=== PATIENT | female | born 1975 | race Hispanic/Latino ===

== ENCOUNTER 2019-04-18 03:47 | Emergency (ER) | payer MEDICARE ==
[2019-04-18 04:04] VITALS: BP 124/76
[2019-04-18 04:45] LABS: Basophils % (Auto) 0.7 % (0.0-1.8); Eosinophils # (Auto) 0.2 K/mm3 (0.0-0.4); Eosinophils % (Auto) 4.5 % (0.0-4.3); Hematocrit 35.4 % (30.3-42.9); Hemoglobin 11.7 gm/dl (10.1-14.3); Lymphocytes # (Auto) 1.6 K/mm3 (1.2-5.4); Lymphocytes % (Auto) 32.6 % (13.4-35.0); Mean Corpuscular HGB Conc 33 % (30-34); Mean Corpuscular Volume 93 fl (79-97); Monocytes # (Auto) 0.5 K/mm3 (0.0-0.8); Monocytes % (Auto) 9.2 % (0.0-7.3); Platelet Count 323 K/mm3 (140-440); Red Cell Distribution Width 15.5 % (13.2-15.2)
[2019-04-18 05:09] LABS: Alanine Aminotransferase 12 units/L (7-56); Albumin 3.7 g/dL (3.9-5); BUN/Creatinine Ratio 24; Blood Urea Nitrogen 17 mg/dL (7-17); Calcium 8.9 mg/dL (8.4-10.2); Hemolysis Index 27
[2019-04-18] MEDS ORDERED: CLEOCIN 600 MG/50 mL 600 MG/50 ML BAG IV ONE (07:44)
[2019-04-18] MEDS ORDERED: TORADOL IV ONE (07:44)
--- NOTE | 2019-04-18 08:06 | Emergency Department Report ---
ED ENT HPI - General Chief complaint: Dental/Oral Stated complaint: FACIAL SWELLING Time Seen by Provider: 04/18/19 07:38 Source: patient Mode of arrival: Ambulatory Limitations: No Limitations - History of Present Illness Initial comments: 43-year-old female presents to the emergency room for facial swelling for 3 days with a dental carry as the origin of illness. Patient reports that she is aware she has some bad teeth in her mouth. She denies any fever problems swallowing the problems closing her eyes. She does have a past medical history of diabetes hypertension hypercholesterolemia. She is a smoker. MD complaint: tooth pain, other (left cheek swelling and redness.) Onset/Timin -: days(s) Location: tooth # (14,15) Severity scale (0 -10): 10 Quality: stabbing, aching, sharp Consistency: constant Improves with: none Worsens with: none Context- Dental: history of dental caries, poor dental care Associated Symptoms: gum swelling, other (left side facial swelling) - Related Data Previous Rx's Medication Instructions Recorded Last Taken Type Clindamycin [Clindamycin CAP] 300 mg PO Q8H #30 cap 04/18/19 Unknown Rx Ibuprofen [Motrin 600 MG tab] 600 mg PO Q8H PRN #30 tablet 04/18/19 Unknown Rx traMADol [Ultram 50 MG tab] 50 mg PO Q6HR PRN #12 tablet 04/18/19 Unknown Rx Allergies Allergy/AdvReac Type Severity Reaction Status Date / Time No Known Allergies Allergy Unverified 04/18/19 04:17 ED Dental HPI - General Chief complaint: Dental/Oral Stated complaint: FACIAL SWELLING Time Seen by Provider: 04/18/19 07:38 Source: patient Mode of arrival: Ambulatory Limitations: No Limitations - Related Data Previous Rx's Medication Instructions Recorded Last Taken Type Clindamycin [Clindamycin CAP] 300 mg PO Q8H #30 cap 04/18/19 Unknown Rx Ibuprofen [Motrin 600 MG tab] 600 mg PO Q8H PRN #30 tablet 04/18/19 Unknown Rx traMADol [Ultram 50 MG tab] 50 mg PO Q6HR PRN #12 tablet 04/18/19 Unknown Rx Allergies Allergy/AdvReac Type Severity Reaction Status Date / Time No Known Allergies Allergy Unverified 04/18/19 04:17 ED Review of Systems ROS: Stated complaint: FACIAL SWELLING Other details as noted in HPI Comment: All other systems reviewed and negative ENT: dental pain ED Past Medical Hx - Past Medical History Previous Medical History?: Yes Hx Hypertension: Yes Hx Diabetes: Yes Hx Arthritis: Yes (left hip) Hx Seizures: Yes Additional medical history: hyperlipidemia, depression, abd hernia, chronic hip pain - Surgical History Past Surgical History?: Yes Additional Surgical History: total right hip replacement - Social History Smoking Status: Current Every Day Smoker Substance Use Type: None - Medications Home Medications: Home Medications Medication Instructions Recorded Confirmed Last Taken Type Clindamycin [Clindamycin CAP] 300 mg PO Q8H #30 cap 04/18/19 Unknown Rx Ibuprofen [Motrin 600 MG tab] 600 mg PO Q8H PRN #30 tablet 04/18/19 Unknown Rx traMADol [Ultram 50 MG tab] 50 mg PO Q6HR PRN #12 tablet 04/18/19 Unknown Rx ED Physical Exam - General Limitations: No Limitations General appearance: alert, in no apparent distress - Head Head exam: Present: atraumatic, normocephalic - Eye Eye exam: Present: normal appearance, PERRL, EOMI, periorbital swelling (left orbit), periorbital tenderness (left orbit) - ENT ENT exam: Present: mucous membranes moist - Expanded ENT Exam Expanded Teeth exam: Present: dental caries, dental tenderness # (14,15) - Neck Neck exam: Present: normal inspection - Respiratory Respiratory exam: Present: normal lung sounds bilaterally. Absent: respiratory distress - Cardiovascular Cardiovascular Exam: Present: regular rate, normal rhythm. Absent: systolic murmur, diastolic murmur, rubs, gallop - GI/Abdominal GI/Abdominal exam: Present: soft, normal bowel sounds - Neurological Exam Neurological exam: Present: alert, oriented X3 - Psychiatric Psychiatric exam: Present: normal affect, normal mood - Skin Skin exam: Present: warm, dry, intact, normal color. Absent: rash ED Course Vital Signs 04/18/19 03:54 Temperature 98.4 F Pulse Rate 91 H Respiratory 16 Rate Blood Pressure 124/76 O2 Sat by Pulse 99 Oximetry ED Medical Decision Making - Lab Data Result diagrams: 04/18/19 04:20 04/18/19 04:20 - Medical Decision Making 43-year-old female comes in for left face swelling and tenderness with an abscess to her teeth #14 or 15. Patient is afebrile. White count was negative. We will place patient on IV clindamycin 600 mg and will discharge her on 300 mg twice a day for the next 10 days. And a referral to a community dentist. Patient was given Toradol for pain control Critical care attestation.: If time is entered above; I have spent that time in minutes in the direct care of this critically ill patient, excluding procedure time. ED Disposition Clinical Impression: Periorbital cellulitis of left eye Disposition: TO HOME OR SELFCARE Is pt being admited?: No Does the pt Need Aspirin: No Condition: Stable Instructions: Dental Abscess (ED), Orbital Cellulitis (ED), Periorbital Cellulitis in Children (ED) Additional Instructions: Take your antibiotics as prescribed. Pain medication as needed. Do not operate heavy machinery while taking tramadol. Increase her water intake while taking ibuprofen. Follow up with the dentist I have listed several below for your convenience. Prescriptions: Clindamycin [Clindamycin CAP] 300 mg PO Q8H #30 cap Ibuprofen [Motrin 600 MG tab] 600 mg PO Q8H PRN #30 tablet PRN Reason: Pain traMADol [Ultram 50 MG tab] 50 mg PO Q6HR PRN #12 tablet PRN Reason: Pain Referrals: GOKUL BULLARD MD [Primary Care Provider] - 3-5 Days [facility] [Outside] - 3-[address] [facility] [Outside] - 3-5 Days [facility] [Outside] - 3-5 Days Forms: Work/School Release Form(ED)
== END 2019-04-18 09:22 | disposition home or self-care (01) ==
LOC: ED 03:47
DX: L03.213 Periorbital cellulitis (principal); K04.7 Periapical abscess without sinus; G89.29 Other chronic pain; M16.12 Unilateral primary osteoarthritis, left hip; E11.9 Type 2 diabetes mellitus without complications; I10 Essential (primary) hypertension; E78.5 Hyperlipidemia, unspecified; F32.9 Major depressive disorder, single episode, unspecified; F17.200 Nicotine dependence, unspecified, uncomplicated; Z96.641 Presence of right artificial hip joint
CPT/HCPCS: 36415; 80053; 84703; 85025; 96365; 96375; 99283; J1885

== ENCOUNTER 2019-07-21 20:25 | Emergency (ER) | payer MEDICARE ==
[2019-07-21] MEDS ORDERED: PEPCID IV ONE (21:53)
[2019-07-21] MEDS ORDERED: HALDOL IM STA (21:53)
[2019-07-21] MEDS ORDERED: NACL 0.9% 1000 ML 1,000 ML IV ONE ×2 (21:53→23:37)
[2019-07-21] MEDS ORDERED: ZOSTRIX HP TP STA (21:53)
--- NOTE | 2019-07-21 21:54 | Emergency Department Report ---
<YA AVERY - Last Filed: 07/22/19 01:46> ED General Adult HPI - General Chief complaint: Abdominal Pain Stated complaint: EPIGASTRIC PAIN Time Seen by Provider: 07/21/19 21:44 - Related Data Previous Rx's Medication Instructions Recorded Last Taken Type Clindamycin [Clindamycin CAP] 300 mg PO Q8H #30 cap 04/18/19 Unknown Rx Cheli Root [Cheli] 250 mg PO QID PRN #30 capsule 07/22/19 Unknown Rx Metoclopramide [Reglan] 10 mg PO QID PRN #30 tablet 07/22/19 Unknown Rx Promethazine [Phenergan SUPPOS] 50 mg IA Q6HR PRN #15 supp.rect 07/22/19 Unknown Rx Allergies Allergy/AdvReac Type Severity Reaction Status Date / Time No Known Allergies Allergy Verified 07/21/19 21:57 ED Past Medical Hx - Medications Home Medications: Home Medications Medication Instructions Recorded Confirmed Last Taken Type Clindamycin [Clindamycin CAP] 300 mg PO Q8H #30 cap 04/18/19 Unknown Rx Cheli Root [Cheli] 250 mg PO QID PRN #30 capsule 07/22/19 Unknown Rx Metoclopramide [Reglan] 10 mg PO QID PRN #30 tablet 07/22/19 Unknown Rx Promethazine [Phenergan SUPPOS] 50 mg IA Q6HR PRN #15 supp.rect 07/22/19 Unknown Rx ED Medical Decision Making - Lab Data Result diagrams: 07/21/19 22:28 07/21/19 22:28 - Radiology Data INDICATION / CLINICAL INFORMATION: epigastric pain, n/v, recent egd tachycardia htn. TECHNIQUE: Precontrast bolus timing images were obtained followed by postcontrast axial and reformatted images. 3-plane MIP reconstructions were performed at an independent workstation by the technologist. All CT scans at this location are performed using CT dose reduction for ALARA by means of automated exposure control. COMPARISON: None available. FINDINGS: Enhancement of the pulmonary arteries is normal bilaterally. Thoracic aortic enhancement is also normal. No acute pulmonary findings. Mediastinal images show no adenopathy or pericardial effusion. A small hiatal hernia is identified. Limited upper abdominal images appear normal. No significant skeletal abnormality. IMPRESSION: 1. No evidence of pulmonary embolus or acute disease. Signer Name: Stef Soriano MD Signed: 07/22/2019 1:12 AM Workstation Name: [id number] CT abdomen pelvis w con INDICATION / CLINICAL INFORMATION: epigastric pain n/v. TECHNIQUE: All CT scans at this location are performed using CT dose reduction for ALARA by means of automated exposure control. COMPARISON: None available. FINDINGS: The lower lungs are clear. ABDOMEN: The gallbladder, liver, spleen and pancreas are normal. No hydronephrosis. No urinary calculi or renal abnormality. The small bowel is normal. No mesenteric or retroperitoneal adenopathy. No adrenal masses. Pelvis: Orthopedic hardware in the right hip degrades pelvic images detail. There are no acute inflammatory findings demonstrated, no abnormal fluid collections are seen. Advanced degenerative changes are seen in the left femoral head. IMPRESSION: 1. No acute maladies of the abdomen or pelvis. Signer Name: Stef Soriano MD Signed: 07/22/2019 1:26 AM Workstation Name: [id number] - Medical Decision Making She is a 44-year-old female who is presenting with epigastric discomfort and nausea vomiting with a history of gastroparesis. Patient was gi pete multiple medications here in emergency department. Patient is the time of discharge resting comfortably and is no longer have any episodes of vomiting. CT of the chest and abdomen show no acute process. Patient was initially tachycardic but was 100 at the time of discharge per my exam. ED Disposition Clinical Impression: Gastroparesis, Epigastric pain, Hypertension Disposition: DC-01 TO HOME OR SELFCARE Is pt being admited?: No Does the pt Need Aspirin: No Condition: Stable Instructions: Abdominal Pain (ED), Hypertension (ED) Additional Instructions: Continue outpatient medications. Avoid consumption of Motrin, ibuprofen, Naprosyn, Aleve, heavy spicy foods. Avoid consumption of alcohol, and recreational drugs. Takes prescribed pain medication, nausea medications as needed/directed. Do not take metformin medication for the next 2 days. Follow up with her primary care doctor or environmental services project manager within the next 7-10 days. Return to emergency room right away with new, worsened or different symptoms, or symptoms not present on the initial emergency room evaluation. Please note that patient was found to have hypertension and elevated blood pressure today. These were most likely secondary to complaints of abdominal pain, nausea and vomiting. However, the patient should continue her outpatient blood pressure medications, and follow-up with her primary care doctor for this. Long-term complications of hypertension and elevated blood pressure includes stroke, heart attack, disability, paralysis, loss of quality of life. Prescriptions: Cheli Root [Cheli] 250 mg PO QID PRN #30 capsule PRN Reason: Nausea Promethazine [Phenergan SUPPOS] 50 mg IA Q6HR PRN #15 supp.rect PRN Reason: Nausea Metoclopramide [Reglan] 10 mg PO QID PRN #30 tablet PRN Reason: Nausea Referrals: GOKUL BLOCK MD [Primary Care Provider] - 3-5 Days MANAS GALINDO MD [Staff Physician] - 3-5 Days Time of Disposition: 01:49 <KIRKCHARLESCHINEDU - Last Filed: 07/23/19 05:48> ED General Adult HPI - General Source: patient, EMS ( EMS documentation not available at time of chart dictation ), RN notes reviewed Mode of arrival: Stretcher Limitations: Other - History of Present Illness Initial comments: This is a 44-year-old female. This patient is not known to this provider previously. Her past medical history Dr. Gokul Block. She is reportedly admitted to [facility] last week. At that facility, she had upper endoscopy, which reportedly showed pulses. The patient presents to the ER with nontraumatic epigastric pain, nausea and vomiting. She reported he has a history of hypertension and diabetes. She takes insulin for her diabetes. She does not know if she has a formal diagnosis of gastroparesis. She presents with epigas tric pain which does not radiate anywhere. It is associated with profuse nausea and vomiting. She reports that the symptoms feel similar to her prior admission from last week. -: Gradual, hour(s) Location: abdomen Radiation: abdomen Severity scale (0 -10): 8 Quality: aching Consistency: constant Improves with: none Worsens with: none ED Review of Systems ROS: Stated complaint: EPIGASTRIC PAIN Other details as noted in HPI Constitutional: malaise, weakness Eyes: denies: eye discharge ENT: denies: congestion Respiratory: denies: wheezing Cardiovascular: denies: syncope Gastrointestinal: abdominal pain, nausea, vomiting Genitourinary: denies: dysuria Musculoskeletal: myalgia Skin: denies: lesions Neurological: weakness Psychiatric: anxiety Hematological/Lymphatic: denies: easy bleeding ED Past Medical Hx - Past Medical History Hx Hypertension: Yes Hx Diabetes: Yes Hx Arthritis: Yes (left hip) Hx Seizures: Yes Additional medical history: hyperlipidemia, depression, abd hernia, chronic hip pain - Surgical History Additional Surgical History: total right hip replacement - Social History Smoking Status: Current Every Day Smoker Substance Use Type: Alcohol ED Physical Exam - General Limitations: Other (during the physical examination, I am chaperoned by nurse Andrew Richardson) General appearance: alert, in no apparent distress - Head Head exam: Present: atraumatic, normocephalic - Eye Eye exam: Present: normal appearance - ENT ENT exam: Present: mucous membranes dry, normal external ear exam - Neck Neck exam: Present: normal inspection, full ROM. Absent: tenderness, meningismus - Respiratory Respiratory exam: Present: normal lung sounds bilaterally. Absent: respiratory distress - Cardiovascular Cardiovascular Exam: Present: normal rhythm, tachycardia, normal heart sounds. Absent: systolic murmur, diastolic murmur, rubs, gallop - GI/Abdominal GI/Abdominal exam: Present: soft, tenderness (epigastric tenderness. There is no rebound, guarding or peritoneal sign.). Absent: distended, guarding, rebo und, rigid, pulsatile mass - Extremities Exam Extremities exam: Present: normal inspection, full ROM, other (2+ pulses noted in the bilateral upper, lower extremities. There is no long bone tenderness. Musculoskeletal compartments are soft. The pelvis is stable.). Absent: pedal edema, joint swelling, calf tenderness - Back Exam Back exam: Present: normal inspection. Absent: tenderness, CVA tenderness (R), CVA tenderness (L), paraspinal tenderness, vertebral tenderness - Neurological Exam Neurological exam: Present: alert, oriented X3, other (there is no facial droop. The tongue is midline. Extraocular movements are intact bilaterally. Patient speaking in full complete sentences. Shoulder shrug is intact bilaterally. Hearing is grossly intact bilaterally. Visual acuity intact to finger counting and color perception at a close distance. 5/5 strength 4 extremities. Sensation intact to light touch in 4 extremities.) - Psychiatric Psychiatric exam: Present: anxious - Skin Skin exam: Present: warm, dry, intact, normal color. Absent: rash ED Course Vital Signs 07/21/19 07/21/19 07/21/19 21:26 23:20 23:35 Temperature 97.9 F 98.4 F Pulse Rate 116 H 120 H 120 H Respiratory 16 22 Rate Blood Pressure 161/86 Blood Pressure 211/116 161/86 [Left] O2 Sat by Pulse 97 99 Oximetry 07/22/19 07/22/19 07/22/19 01:00 01:16 01:30 Temperature Pulse Rate 110 H 101 H 105 H Respiratory 19 21 21 Rate Blood Pressure 120/70 125/68 139/71 Blood Pressure [Left] O2 Sat by Pulse 99 99 98 Oximetry 07/22/19 07/22/19 07/22/19 01:46 02:00 02:16 Temperature Pulse Rate 102 H 110 H 107 H Respiratory 23 23 20 Rate Blood Pressure 133/66 135/74 142/73 Blood Pressure [Left] O2 Sat by Pulse 99 98 100 Oximetry 07/22/19 07/22/19 02:30 03:10 Temperature Pulse Rate 113 H 122 H Respiratory 21 24 Rate Blood Pressure 146/67 Blood Pressure 127/63 [Left] O2 Sat by Pulse 98 99 Oximetry - Reevaluation(s) Reevaluation #1: 07/21/19 22:48 Differential diagnosis, including but not limited to: GERD, gastritis, hiatal hernia, obstruction, complication from endoscopy, pulmonary embolism, gastroparesis, hypertensive urgency secondary to aforementioned Assessment and plan: 44-year-old female with a history of hypertension and diabetes, had endoscopy last week, reports history of ulcers, likely experiencing natural history of ulcers, and presumed gastroparesis. She is afebrile but tachycardic and hypertensive. We will obtain CT scan of the chest to exclude pulmonary embolism, and postprocedural endoscopically complications. We will obtain CT scan abdomen and pelvis to exclude surgical conditions. I heavily suspect that her objective imaging studies will be unremarkable. We will also treat her with haloperidol, fluids, Pepcid, and topical Capsacin Discussed this plan of care with the patient, who verbalizes understanding. Reevaluation #2: 07/21/19 23:19 Medical records reviewed. Patient apparently has a history of hypertension, type 2 diabetes, pancreatitis, alcohol and drug abuse. Patient was admitted July 14, discharged July 18. She had EGD July 16. EGD suggested esophagitis, gastritis, and erosions in the stomach. A HIDA scan was not consistent with cholecystitis. She was managed with fluids antiemetics and proton pump inhibitors. Reevaluation #3: 07/21/19 23:50 bp 161/86, heart rate 114-120 hydralazine cancelled care will be transferred to Overnight physician, Dr Avery to follow up on diagnostics, ekg, and to reassess may require additional fluids, and additional interventions prior to possible discharge. ED Medical Decision Making - Lab Data Result diagrams: 07/21/19 22:28 07/21/19 22:28 Vital Signs 07/21/19 21:26 Temperature 97.9 F Pulse Rate 116 H Respiratory 16 Rate Blood Pressure 211/116 [Left] O2 Sat by Pulse 97 Oximetry Vital Signs 07/21/19 21:26 Temperature 97.9 F Pulse Rate 116 H Respiratory 16 Rate Blood Pressure 211/116 [Left] O2 Sat by Pulse 97 Oximetry Lab Results 07/21/19 07/21/19 07/21/19 Range/Units 22:28 22:28 22:28 WBC 8.3 (4.5-11.0) K/mm3 RBC 5.04 H (3.65-5.03) M/mm3 Hgb 14.8 H (10.1-14.3) gm/dl Hct 44.8 H (30.3-42.9) % MCV 89 (79-97) fl MCH 29 (28-32) pg MCHC 33 (30-34) % RDW 15.7 H (13.2-15.2) % Plt Count 299 (140-440) K/mm3 VBG pH 7.428 H (7.320-7.420) Sodium 139 (137-145) mmol/L Potassium 4.2 (3.6-5.0) mmol/L Chloride 95.3 L (98-107) mmol/L Carbon Dioxide 23 (22-30) mmol/L Anion Gap 25 mmol/L BUN 16 (7-17) mg/dL Creatinine 0.6 L (0.7-1.2) mg/dL Estimated GFR > 60 ml/min BUN/Creatinine Ratio 27 % Glucose 296 H (65-100) mg/dL Calcium 9.4 (8.4-10.2) mg/dL Magnesium 1.70 (1.7-2.3) mg/dL Total Bilirubin 0.30 (0.1-1.2) mg/dL AST 19 (5-40) units/L ALT 13 (7-56) units/L Alkaline Phosphatase 94 (35-129) units/L Total Creatine Kinase 58 (30-135) units/L Total Protein 8.0 (6.3-8.2) g/dL Albumin 4.6 (3.9-5) g/dL Albumin/Globulin Ratio 1.4 % Lipase 9 L (13-60) units/L - EKG Data -: EKG Interpreted by Me EKG shows normal: sinus rhythm Rate: tachycardia - EKG Data When compared to previous EKG there are: previous EKG unavailable 07/21/19 23:59 There is no prior EKG available for comparison. a sinus tachycardia, 113 bpm, QTC 465 ms, borderline left ventricular hypertrophy, atrial enlargement, the EKG is abnormal, the EKG is not consistent with ST elevation myocardial infarction. ? limb lead reversal, in avl, repeat ekg ordered - Radiology Data Radiology results: pending Critical care attestation.: If time is entered above; I have spent that time in minutes in the direct care of this critically ill patient, excluding procedure time. ED Disposition Is pt being admited?: No Does the pt Need Aspirin: No
[2019-07-21 23:08] LABS: Hematocrit 44.8 % (30.3-42.9); Hemoglobin 14.8 gm/dl (10.1-14.3); Mean Corpuscular HGB Conc 33 % (30-34); Mean Corpuscular Volume 89 fl (79-97); Platelet Count 299 K/mm3 (140-440); Red Blood Count 5.04 M/mm3 (3.65-5.03); Red Cell Distribution Width 15.7 % (13.2-15.2)
[2019-07-21] MEDS ORDERED: APRESOLINE IV ONE (23:22)
[2019-07-21 23:28] LABS: Alanine Aminotransferase 13 units/L (7-56); Albumin 4.6 g/dL (3.9-5); BUN/Creatinine Ratio 27; Blood Urea Nitrogen 16 mg/dL (7-17); Calcium 9.4 mg/dL (8.4-10.2); Hemolysis Index 3
[2019-07-21] MEDS ORDERED: HumuLIN R IV ONE (23:31)
--- NOTE | 2019-07-22 00:45 | XRay Report ---
ABDOMINAL SERIES WITH CHEST X-RAY 07/22/2019 INDICATION / CLINICAL INFORMATION: abd pain n/v. COMPARISON: None available. FINDINGS: No evidence of small bowel distention. Moderate fecal retention is seen throughout the colon. No pneumoperitoneum. No pathologic calcifications projecting over the upper urinary tract. Phleboliths are seen in the pelvis. 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 The PA chest x-ray shows no acute disease. IMPRESSION: No acute findings. Moderate fecal retention. Signer Name: Stef Soriano MD Signed: 07/22/2019 12:41 AM Workstation Name: [id number]
--- NOTE | 2019-07-22 01:17 | Cat Scan Report ---
CT angio chest INDICATION / CLINICAL INFORMATION: epigastric pain, n/v, recent egd tachycardia htn. TECHNIQUE: Precontrast bolus timing images were obtained followed by postcontrast axial and reformatted images. 3-plane MIP reconstructions were performed at an independent workstation by the technologist. All CT scans at this location are performed using CT dose reduction for ALARA by means of automated exposure control. COMPARISON: None available. FINDINGS: Enhancement of the pulmonary arteries is normal bilaterally. Thoracic aortic enhancement is also normal. No acute pulmonary findings. Mediastinal images show no adenopathy or pericardial effusion. A small hiatal hernia is identified. Limited upper abdominal images appear normal. No significant skeletal abnormality. IMPRESSION: 1. No evidence of pulmonary embolus or acute disease. Signer Name: Stef Soriano MD Signed: 07/22/2019 1:12 AM Workstation Name: [id number]
--- NOTE | 2019-07-22 01:31 | Cat Scan Report ---
CT abdomen pelvis w con INDICATION / CLINICAL INFORMATION: epigastric pain n/v. TECHNIQUE: All CT scans at this location are performed using CT dose reduction for ALARA by means of automated e xposure control. COMPARISON: None available. FINDINGS: The lower lungs are clear. ABDOMEN: The gallbladder, liver, spleen and pancreas are normal. No hydronephrosis. No urinary calculi or renal abnormality. The small bowel is normal. No mesenteric or retroperitoneal adenopathy. No adrenal masses. Pelvis: Orthopedic hardware in the right hip degrades pelvic images detail. There are no acute inflammatory findings demonstrated, no abnormal fluid collections are seen. Advanced degenerative changes are seen in the left femoral head. IMPRESSION: 1. No acute maladies of the abdomen or pelvis. Signer Name: Stef Soriano MD Signed: 07/22/2019 1:26 AM Workstation Name: [id number]
[2019-07-22 04:30] VITALS: BP 127/63
== END 2019-07-22 03:15 | disposition home or self-care (01) ==
LOC: ED 20:25
DX: E11.43 Type 2 diabetes mellitus with diabetic autonomic (poly)neuropathy (principal); K31.84 Gastroparesis; R10.13 Epigastric pain; I10 Essential (primary) hypertension; M19.90 Unspecified osteoarthritis, unspecified site; F32.9 Major depressive disorder, single episode, unspecified; M25.551 Pain in right hip; F17.200 Nicotine dependence, unspecified, uncomplicated; Z98.890 Other specified postprocedural states
CPT/HCPCS: 36415; 71275; 74022; 74177; 80048; 80053; 82550; 82805; 83690; 83735; 84702; 85027; 93005; 93010; 96361; 96372; 96374; 96375; 99285; J1630; J7030; Q9967; J1815

== ENCOUNTER 2019-07-24 13:26 | Emergency (ER) | payer MEDICARE ==
--- NOTE | 2019-07-24 13:42 | Emergency Department Report ---
Blank Doc - Documentation Documentation: 44-year-old female that presents with cp and sob. This initial assessment/diagnostic orders/clinical plan/treatment(s) is/are subject to change based on patient's health status, clinical progression and re- assessment by fellow clinical providers in the ED. Further treatment and workup at subsequent clinical providers discretion. Patient/guardians urged not to elope from the ED as their condition may be serious if not clinically assessed and managed. Initial orders include: 1- Patient sent to MAIN for further evaluation and treatment 2- labs 3- EKG 4- cXR
--- NOTE | 2019-07-24 14:02 | XRay Report ---
CHEST 2 VIEWS INDICATION: Chest Pain. COMPARISON: None FINDINGS: Support devices: None. Heart: Within normal limits. Lungs/pleura: No acute air space or interstitial disease. No pneumothorax. Additional findings: None. IMPRESSION: No acute findings. Signer Name: Andre Sumner Jr, MD Signed: 07/24/2019 1:58 PM Workstation Name: [id number]
[2019-07-24] MEDS ORDERED: NACL 0.9% 1000 ML 1,000 ML IV ONE ×2 (14:05→15:25)
[2019-07-24] MEDS ORDERED: ALUM-MAG HYDROX-SIMETH 200-200-20MG/5ML PO ONE (14:06)
[2019-07-24] MEDS ORDERED: PROTONIX IV ONE (14:06)
[2019-07-24] MEDS ORDERED: LIDOCAINE VISCOUS 2% PO ONE (14:06)
--- NOTE | 2019-07-24 14:07 | Emergency Department Report ---
ED Abdominal Pain HPI - General Chief Complaint: Chest Pain Stated Complaint: CHEST/STOMACH PAIN Time Seen by Provider: 07/24/19 13:41 Source: patient Mode of arrival: Ambulatory Limitations: No Limitations - History of Present Illness Initial Comments: 44 yo comes to ER with epigastric pain rad. to chest. She just had a full ER workup on 07-21 which included CTA chest and CT abd pelvis- all normal. Pt did not follow up p ER dc. PCP Dr Luanne Block THC last time 3 w ago ETOH occ cig smoker Pain is sharp and comes and goes. not related to food or activiyt. PSH hip replaced PMH DM HTN HPLD sz ? cause neuropathy gastroparesis- per EMR No hx CVA/CAD mom and dad a/w Rx insulin keppra lisinopril pravachol gabapentin nausea meds- given in ER 07-21 Complaint: abdominal pain Location: epigastric Radiation: none Migration to: no migration Severity scale (0 -10): 7 Quality: aching Consistency: constant Improves With: nothing Worsens With: nothing Associated Symptoms: nausea. denies: vomiting, diarrhea Treatments Prior to Arrival: other - Related Data Previous Rx's Medication Instructions Recorded Last Taken Type Cheli Root [Cheli] 250 mg PO QID PRN #30 capsule 07/22/19 Unknown Rx Metoclopramide [Reglan] 10 mg PO QID PRN #30 tablet 07/22/19 Unknown Rx Promethazine [Phenergan SUPPOS] 50 mg [place] Q6HR PRN #15 supp.rect 07/22/19 Unknown Rx Allergies Allergy/AdvReac Type Severity Reaction Status Date / Time No Known Allergies Allergy Verified 07/21/19 21:57 ED Review of Systems ROS: Stated complaint: CHEST/STOMACH PAIN Other details as noted in HPI Comment: All other systems reviewed and negative ED Past Medical Hx - Past Medical History Previous Medical History?: Yes Hx Hypertension: Yes Hx CVA: No Hx Heart Attack/AMI: No Hx Congestive Heart Failure: No Hx Diabetes: Yes Hx Deep Vein Thrombosis: No Hx Pulmonary Embolism: No Hx GERD: No Hx Liver Disease: No Hx Renal Disease: No Hx of Cancer: No Hx Sickle Cell Disease: No Hx Arthritis: Yes (left hip) Hx Headaches / Migraines: No Hx Seizures: Yes Hx Kidney Stones: No Hx Psychiatric Treatment: No Hx Asthma: No Hx COPD: No Hx Tuberculosis: No Hx Dementia: No Hx HIV: No Additional medical history: hyperlipidemia, depression, abd hernia, chronic hip pain, GASTROPARESIS - Surgical History Past Surgical History?: Yes Additional Surgical History: total right hip replacement - Family History Family history: no significant - Social History Smoking Status: Current Every Day Smoker Substance Use Type: Alcohol, Marijuana - Medications Home Medications: Home Medications Medication Instructions Recorded Confirmed Last Taken Type Cheli Root [Cheli] 250 mg PO QID PRN #30 capsule 07/22/19 Unknown Rx Metoclopramide [Reglan] 10 mg PO QID PRN #30 tablet 07/22/19 Unknown Rx Promethazine [Phenergan SUPPOS] 50 mg W[place] Q6HR PRN #15 supp.rect 07/22/19 Unknown Rx ED Physical Exam - General Limitations: No Limitations General appearance: alert - Head Head exam: Present: normocephalic - Eye Eye exam: Present: normal appearance, PERRL - ENT ENT exam: Present: mucous membranes moist - Neck Neck exam: Present: normal inspection - Respiratory Respiratory exam: Present: normal lung sounds bilaterally - Cardiovascular Cardiovascular Exam: Present: regular rate, tachycardia - GI/Abdominal GI/Abdominal exam: Present: soft, normal bowel sounds - Rectal Rectal exam: Present: deferred - Extremities Exam Extremities exam: Present: normal inspection, full ROM - Back Exam Back exam: Present: normal inspection, full ROM - Neurological Exam Neurological exam: Present: alert, oriented X3, CN II-XII intact - Psychiatric Psychiatric exam: Present: normal affect - Skin Skin exam: Present: warm, dry, intact ED Course Vital Signs 07/24/19 07/24/19 07/24/19 13:39 13:58 14:02 Temperature 98.1 F Pulse Rate 125 H 122 H 85 Respiratory 18 18 Rate Blood Pressure 197/113 Blood Pressure 211/103 [Left] O2 Sat by Pulse 99 98 Oximetry 07/24/19 16:04 Temperature Pulse Rate 98 H Respiratory Rate Blood Pressure 117/86 Blood Pressure [Left] O2 Sat by Pulse Oximetry ED Medical Decision Making - Lab Data Result diagrams: 07/24/19 14:15 07/24/19 14:15 - EKG Data -: EKG Interpreted by [place] EKG shows normal: sinus rhythm Rate: bradycardia - EKG Data When compared to previous EKG there are: no significant change Interpretation: no acute changes - Radiology Data Radiology results: report reviewed, image reviewed - Medical Decision Making Lab Results 07/24/19 07/24/19 07/24/19 Range/Units 14:15 14:15 14:15 WBC 8.2 (4.5-11.0) K/mm3 RBC 4.88 (3.65-5.03) M/mm3 Hgb 14.3 (10.1-14.3) gm/dl Hct 43.2 H (30.3-42.9) % MCV 89 (79-97) fl MCH 29 (28-32) pg MCHC 33 (30-34) % RDW 16.0 H (13.2-15.2) % Plt Count 305 (140-440) K/mm3 Lymph % (Auto) 12.4 L (13.4-35.0) % Perry % (Auto) 8.4 H (0.0-7.3) % Eos % (Auto) 0.1 (0.0-4.3) % Baso % (Auto) 0.5 (0.0-1.8) % Lymph # 1.0 L (1.2-5.4) K/mm3 Perry # 0.7 (0.0-0.8) K/mm3 Eos # 0.0 (0.0-0.4) K/mm3 Baso # 0.0 (0.0-0.1) K/mm3 Seg Neutrophils % 78.6 H (40.0-70.0) % Seg Neutrophils # 6.4 (1.8-7.7) K/mm3 VBG pH (7.320-7.420) Sodium 138 (137-145) mmol/L Potassium 3.9 (3.6-5.0) mmol/L Chloride 97.0 L (98-107) mmol/L Carbon Dioxide 21 L (22-30) mmol/L Anion Gap 24 mmol/L BUN 14 (7-17) mg/dL Creatinine 0.5 L (0.7-1.2) mg/dL Estimated GFR > 60 ml/min BUN/Creatinine Ratio 28 % Glucose 182 H (65-100) mg/dL Calcium 8.8 (8.4-10.2) mg/dL Total Bilirubin 0.30 (0.1-1.2) mg/dL AST 29 (5-40) units/L ALT 14 (7-56) units/L Alkaline Phosphatase 85 (35-129) units/L Troponin T < 0.010 (0.00-0.029) ng/mL Total Protein 7.5 (6.3-8.2) g/dL Albumin 4.2 (3.9-5) g/dL Albumin/Globulin Ratio 1.3 % Lipase (13-60) units/L HCG, Qual Negative (Negative) Urine Color (Yellow) Urine Turbidity (Clear) Urine pH (5.0-7.0) Ur Specific Sharps (1.003-1.030) Urine Protein (Negative) mg/dL Urine Glucose (UA) (Negative) mg/dL Urine Ketones (Negative) mg/dL Urine Blood (Negative) Urine Nitrite (Negative) Urine Bilirubin (Negative) Urine Urobilinogen (<2.0) mg/dL Ur Leukocyte Esterase (Negative) Urine WBC (Auto) (0.0-6.0) /HPF Urine RBC (Auto) (0.0-6.0) /HPF U Epithel Cells (Auto) (0-13.0) /HPF Urine Bacteria (Auto) (Negative) /HPF Urine Mucus /HPF 07/24/19 07/24/19 07/24/19 Range/Units 14:15 14:15 Unknown WBC (4.5-11.0) K/mm3 RBC (3.65-5.03) M/mm3 Hgb (10.1-14.3) gm/dl Hct (30.3-42.9) % MCV (79-97) fl MCH (28-32) pg MCHC (30-34) % RDW (13.2-15.2) % Plt Count (140-440) K/mm3 Lymph % (Auto) (13.4-35.0) % Perry % (Auto) (0.0-7.3) % Eos % (Auto) (0.0-4.3) % Baso % (Auto) (0.0-1.8) % Lymph # (1.2-5.4) K/mm3 Perry # (0.0-0.8) K/mm3 Eos # (0.0-0.4) K/mm3 Baso # (0.0-0.1) K/mm3 Seg Neutrophils % (40.0-70.0) % Seg Neutrophils # (1.8-7.7) K/mm3 VBG pH 7.433 H (7.320-7.420) Sodium (137-145) mmol/L Potassium (3.6-5.0) mmol/L Chloride (98-107) mmol/L Carbon Dioxide (22-30) mmol/L Anion Gap mmol/L BUN (7-17) mg/dL Creatinine (0.7-1.2) mg/dL Estimated GFR ml/min BUN/Creatinine Ratio % Glucose (65-100) mg/dL Calcium (8.4-10.2) mg/dL Total Bilirubin (0.1-1.2) mg/dL AST (5-40) units/L ALT (7-56) units/L Alkaline Phosphatase (35-129) units/L Troponin T (0.00-0.029) ng/mL Total Protein (6.3-8.2) g/dL Albumin (3.9-5) g/dL Albumin/Globulin Ratio % Lipase 10 L (13-60) units/L HCG, Qual (Negative) Urine Color Yellow (Yellow) Urine Turbidity Clear (Clear) Urine pH 7.0 (5.0-7.0) Ur Specific Sharps 1.021 (1.003-1.030) Urine Protein <15 mg/dl (Negative) mg/dL Urine Glucose (UA) >=500 (Negative) mg/dL Urine Ketones 80 (Negative) mg/dL Urine Blood Neg (Negative) Urine Nitrite Neg (Negative) Urine Bilirubin Neg (Negative) Urine Urobilinogen 2.0 (<2.0) mg/dL Ur Leukocyte Esterase Neg (Negative) Urine WBC (Auto) 1.0 (0.0-6.0) /HPF Urine RBC (Auto) 6.0 (0.0-6.0) /HPF U Epithel Cells (Auto) 4.0 (0-13.0) /HPF Urine Bacteria (Auto) 1+ (Negative) /HPF Urine Mucus Few /HPF Vital Signs 07/24/19 07/24/19 07/24/19 13:39 13:58 14:02 Temperature 98.1 F Pulse Rate 125 H 122 H 85 Respiratory 18 18 Rate Blood Pressure 197/113 Blood Pressure 211/103 [Left] O2 Sat by Pulse 99 98 Oximetry 07/24/19 16:04 Temperature Pulse Rate 98 H Respiratory Rate Blood Pressure 117/86 Blood Pressure [Left] O2 Sat by Pulse Oximetry 44 yo comes to ER with epigastric pain rad. to chest. She just had a full ER workup on 07-21 which included CTA chest and CT abd pelvis- all normal. Pt did not follow up p ER dc. LABS NOTED VS NOTED LABETOLOL GIVEN FOR BP NS/INSULIN FOR BLOOD GLUCOSE VS NORMALIZED TAKING PO A/C GASTROPARESIS AND MED NON ADH. ASKING FOR PAIN MEDS. TOLD HER WE WOULD NOT GIVE HER PAIN MEDS SHED NEED TO SEE A PCP. NO VOMITING IN ER DC HOME. TAKING PO. WILL FOLLOW UP WITH PCP/GI. REFERRALS AGAIN GIVEN. - Differential Diagnosis RO ELECTROLYTE ABN/ACUTE ABD Critical care attestation.: If time is entered above; I have spent that time in minutes in the direct care of this critically ill patient, excluding procedure time. ED Disposition Clinical Impression: Hypertension, Gastroparesis, Hyperglycemia due to type 1 diabetes mellitus, Chronic pain Disposition: DC- TO HOME OR SELFCARE Is pt being admited?: No Does the pt Need Aspirin: No Condition: Stable Instructions: Acute Nausea and Vomiting (ED) Additional Instructions: DIET TOLERATED HYDRATE WELL WITH WATER AVOID ALCOHOL AND MARIJUANA CONTINUE YOUR HOME MEDS INCLUDING INSULIN FOLLOW UP WITH PCP AND GI MD REFERRALS BELOW ACTIVITY TOLERATED Referrals: KURT VAZ MD [Staff Physician] - 3-5 Days SOFIA TAVARES MD [Staff Physician] - 3-5 Days AXEL ABDUL MD [Staff Physician] - 3-5 Days [facility] [Outside] - 3-5 Days Time of Disposition: 16:29
[2019-07-24 14:32] LABS: Basophils % (Auto) 0.5 % (0.0-1.8); Eosinophils % (Auto) 0.1 % (0.0-4.3); Hematocrit 43.2 % (30.3-42.9); Hemoglobin 14.3 gm/dl (10.1-14.3); Lymphocytes % (Auto) 12.4 % (13.4-35.0); Mean Corpuscular HGB Conc 33 % (30-34); Mean Corpuscular Volume 89 fl (79-97); Monocytes # (Auto) 0.7 K/mm3 (0.0-0.8); Monocytes % (Auto) 8.4 % (0.0-7.3); Platelet Count 305 K/mm3 (140-440); Red Blood Count 4.88 M/mm3 (3.65-5.03)
[2019-07-24 14:59] LABS: Alanine Aminotransferase 14 units/L (7-56); Albumin 4.2 g/dL (3.9-5); BUN/Creatinine Ratio 28; Blood Urea Nitrogen 14 mg/dL (7-17); Calcium 8.8 mg/dL (8.4-10.2); Hemolysis Index 50
[2019-07-24 15:13] LABS: Bacteria,Urine 1+ /HPF (Negative); Bilirubin,Urine NEG (Negative); Blood,Urine NEG (Negative); Color,Urine Yellow (Yellow); Mucus,Urine FEW /HPF
[2019-07-24 15:16] LABS: Protein,Urine <15 mg/dL mg/dL (Negative)
[2019-07-24] MEDS ORDERED: HumuLIN R IV ONE (15:22)
[2019-07-24] MEDS ORDERED: ZOFRAN IV ONE (15:25)
[2019-07-24] MEDS ORDERED: LABETALOL IV ONE (15:25)
[2019-07-24] MEDS ORDERED: TORADOL IV ONE (16:32)
[2019-07-24] MEDS ORDERED: REGLAN IV ONE (16:32)
[2019-07-24 16:42] VITALS: BP 173/96
== END 2019-07-24 17:12 | disposition home or self-care (01) ==
LOC: ED 13:26
DX: K31.84 Gastroparesis (principal); E10.65 Type 1 diabetes mellitus with hyperglycemia; G89.29 Other chronic pain; E78.5 Hyperlipidemia, unspecified; I10 Essential (primary) hypertension; M16.12 Unilateral primary osteoarthritis, left hip; F32.9 Major depressive disorder, single episode, unspecified; F17.200 Nicotine dependence, unspecified, uncomplicated; F12.10 Cannabis abuse, uncomplicated
CPT/HCPCS: 36415; 71046; 80053; 81001; 82805; 83690; 84484; 84703; 85025; 93005; 93010; 96374; 96375; 99284; C9113; J1885; J2405; J2765; J7030; J1815